=== PATIENT | female | born 1970 | race Caucasian/White ===

== ENCOUNTER 2017-09-23 11:20 | Emergency (ER) | payer BC ==
[~2017-09-23] VITALS: Ht 157.5 cm; Wt 62.6 kg
[2017-09-23 11:28] VITALS: BP 147/78
[2017-09-23 11:35] VITALS: BP 147/78
--- NOTE | 2017-09-23 11:38 | NUR ---
PT AMBULATED TO BED 2
--- NOTE | 2017-09-23 11:40 | NUR ---
PATIENT PRESENTS TO ED WITH C/O DIZZINESS, VOMITING X 2 DAYS, BL BREAST PAIN X 4 DAYS, TIRED . AAOX4 WITH EVEN AND STEADY GAIT; LUNGS CLEAR BL; HR EVEN AND REGULAR; PT DENIES ANY FEVER, CP, SOB, OR COUGH AT THIS TIME; SKIN IS PINK/WARM/DRY; PATIENT STATES PAIN OF 10/10 AT THIS TIME; VSS; PATIENT POSITIONED FOR COMFORT; HOB ELEVATED; BEDRAILS UP X2; BED DOWN. ER MD MADE AWARE OF PT STATUS.
--- NOTE | 2017-09-23 11:50 | NUR ---
Patient being evaluated by physician at bedside.
[2017-09-23] MEDS ORDERED: NACL 0.9% 1,000 ML IV ONE (12:41)
[2017-09-23] MEDS ORDERED: ONDANSETRON 4 MG/2 ML VIAL IVP ONE (12:45)
[2017-09-23] MEDS ORDERED: MORPHINE SULFATE 4 MG/ML SYR IVP ONE (12:45)
--- NOTE | 2017-09-23 12:50 | NUR ---
PT REFUSED ALL THE MEDICATION AT THIS TIME, DR. WALKER MADE AWARE.
--- NOTE | 2017-09-23 12:57 | NUR ---
DR. WALKER PERFORMED BREASTS EXAM AT BEDSIDE, LEAD PHARMACY TECHNICIAN WITH JORGE MELISSA.
[2017-09-23 13:29] LABS: BASOPHILS # (AUTO) 0.2 K/uL (0.00-0.22); BASOPHILS % (AUTO) 1.7 % (0.0-2.0); EOSINOPHILS # (AUTO) 0.1 K/uL (0-0.4); EOSINOPHILS % (AUTO) 1.5 % (0.0-4.0); HEMATOCRIT 39.6 % (36-48); HEMOGLOBIN 13.1 g/dL (12.0-16.0); LYMPHOCYTES # (AUTO) 2.2 K/uL (2.5-16.5); LYMPHOCYTES % (AUTO) 24.4 % (20.5-51.1); MEAN CORPUSCULAR HEMOGLOBIN 30 pg (27-31); MEAN CORPUSCULAR HGB CONC 33 g/dL (33-37); MEAN CORPUSCULAR VOLUME 89.7 fL (80-94); MONOCYTES # (AUTO) 0.7 K/uL (0.8-1.0); MONOCYTES % (AUTO) 8.1 % (1.7-9.3); NEUTROPHILS # (AUTO) 5.7 K/uL (1.8-7.7); NEUTROPHILS % (AUTO) 64.3 % (42.2-75.2); PLATELET COUNT (AUTO) 262 K/uL (140-450); RED BLOOD CELL COUNT(AUTO) 4.41 MIL/uL (4.20-5.40); RED CELL DISTRIBUTION WIDTH 12.5 % (11.6-13.7); WHITE BLOOD COUNT (AUTO) 8.9 K/uL (4.8-10.8)
[2017-09-23 13:31] LABS: ANION GAP 12.1 (8-16); CARBON DIOXIDE 25.8 mmol/L (21-32); CREATININE 0.5 mg/dL (0.6-1.3); POTASSIUM 3.9 mmol/L (3.5-5.1)
[2017-09-23 13:37] LABS: ALBUMIN 3.6 g/dL (3.4-5.0); TOTAL BILIRUBIN 0.4 mg/dL (0.0-1.0)
--- NOTE | 2017-09-23 13:40 | NUR ---
PT REFUSED CT SCAN AT THIS TIME, DR. WALKER MADE AWARE.
--- NOTE | 2017-09-23 13:52 | NUR ---
Patient does not wish to proceed with medical care recommended by DR. WALKER. Patient given information related to possible complications, up to and including , which could occur as a result of leaving hospital at this time. Patient verbalizes understanding of risks involved leaving against medical advice. Patient has signed AMA form.
== END 2017-09-23 13:52 | disposition left against medical advice (07) ==
LOC: MED 11:20
DX: R10.9 Unspecified abdominal pain (principal); R11.0 Nausea; N64.4 Mastodynia
CPT/HCPCS: 36415; 80053; 81002; 81025; 83690; 84703; 85025; 99284; J2270; J2405; J7030